=== PATIENT | male | born 1930 | race African-American/Black ===

== ENCOUNTER 2016-08-10 12:41 | Emergency (ER) | payer OTHER ==
[~2016-08-10] VITALS: Ht 175.3 cm; Wt 74.8 kg
[2016-08-10 13:00] VITALS: BP 113/61
[2016-08-10 13:10] VITALS: BP 113/61
[2016-08-10] MEDS ORDERED: AFRIN NASAL SPR30 ML NASAL (13:11)
--- NOTE | 2016-08-10 13:35 | Emergency Room Report ---
History of Present Illness General Chief Complaint: Nosebleed Source: Patient Present Illness HPI 85 YO M with right sided nose bleed last night. Patient states it started bleeding "because there was something up there and I picked it." It has since stopped. Denies blood in throat or coughing up blood. Denies history of nose bleed or prolonged bleding in the past. Denies HTN or other meds. Allergies: Coded Allergies: No Known Allergies (Unverified , 08/10/16) Patient History Past Medical History: none Past Surgical History: none Pertinent Family History: none Social History: Denies: alcohol use, drug use, smoking Immunizations: UTD Reviewed Nursing Documentation: PMH: Agreed, PSxH: Agreed Nursing Documentation-PMH Past Medical History: No Stated History Review of Systems All Other Systems: negative except mentioned in HPI Physical Exam Vital Signs Date Time Temp Pulse Resp B/P Pulse Ox O2 Delivery O2 Flow Rate FiO2 08/10/16 12:46 98.8 89 16 113/61 99 Room Air Sp02 EP Interpretation: reviewed, normal General Appearance: normal inspection, well appearing, no apparent distress, alert, GCS 15 Head: normocephalic, atraumatic Eyes: bilateral eye EOMI, bilateral eye PERRL ENT: normal ENT inspection, hearing grossly normal, normal pharynx, no angioedema, normal voice, dry mucus membranes, other - Dried blood in anterior keisselbecks plexus on right side. No blood deeper inside. No blood in posterior oropharynx. 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 VSS. Afebrile. Not hypertensive No rebleeding in ED Reassured patient Advised on bleeding control in future Rx Afrin PRN re-bleed PMD followup Last Vital Signs Date Time Temp Pulse Resp B/P Pulse Ox O2 Delivery O2 Flow Rate FiO2 08/10/16 13:10 98.8 16 113/61 99 Room Air 08/10/16 12:46 89 Status: improved Disposition: HOME, SELF-CARE Condition: Improved Scripts Oxymetazoline HCl (Afrin) 15 Ml [place] 2 SPRAY NASAL TWICE A DAY for epistaxis for 3 Days, SPRAY Prov: MUNIR KIRBY M.D. 08/10/16 Referrals: NOT CHOSEN IPA/,REFERRING (PCP) Patient Instructions: Nosebleed, [id number] Additional Instructions: - Be careful to not rub inside of your nose or blow it hard, especially in shower - If bleeding re-occurs, apply pressure to bridge of nose and apply ice - Then you can spray afrin in your nostril as prescribed after bleeding stops MUNIR KIRBY M.D. Aug 10, 2016 13:35
== END 2016-08-10 13:10 | disposition home or self-care (01) ==
LOC: EMR 13:09
DX: R04.0 Epistaxis (principal)
CPT/HCPCS: 99281